=== PATIENT | female | born 1965 | race Caucasian/White ===

== ENCOUNTER 2022-11-13 06:31 | Observation (INO) ==
--- NOTE | 2022-10-24 14:54 | PAT Medication Instructions ---
Medication Instructions Date of Service October 24, 2022 Home Medications acetaminophen 500 mg capsule 1,000 mg PO Q8H PRN Pain atorvastatin 10 mg tablet (Lipitor) 10 mg PO QPM ibuprofen 200 mg tablet 400 mg PO Q6H PRN Pain ASK your surgeon for instructions ibuprofen 200 mg tablet 400 mg PO Q6H PRN Pain Take morning of surgery With a small sip of water, OTHERWISE NOTHING TO EAT OR DRINK AFTER MIDNIGHT: acetaminophen 500 mg capsule 1,000 mg PO Q8H PRN Pain (if needed) Take evening before surgery acetaminophen 500 mg capsule 1,000 mg PO Q8H PRN Pain (if needed) atorvastatin 10 mg tablet (Lipitor) 10 mg PO QPM Other Notes If you have any questions please call us at [phone] or [phone] or [phone] or [phone]
--- NOTE | 2022-10-31 15:23 | Anesthesiology Consultation ---
Date of Service October 31, 2022 Assessment & Plan (1) Encounter for pre-operative examination: - PONV: scop patch requested by pt, previously administered without adverse effects per pt. - Pt requests testing be faxed to her PCP for continuity of care. Chart Review Chart Review: Acceptable Risk for Surgery and Patient seen in Pre Admission Testing Teaching & Discussion Pre-Anesthesia Teaching/Discussion Notes: Instructed NPO after midnight before surgery, except medications with 15 cc of water. Medication instructions provided according to the PAT guidelines. History Surgery Operation Date: 11/13/22 08:10 Proposed Procedures p Right Partial Total Knee Replacement - Dylan Etienne MD Height/Weight Height: 5 ft 3 in Weight: 79.7 kg Allergies Allergy/AdvReac Type Severity Reaction Status Date / Time clarithromycin [From Biaxin] Allergy Intermediate Hives Verified 10/23/22 14:34 fluconazole [From Diflucan] Allergy Intermediate Hives Verified 10/23/22 14:34 sulfamethoxazole Allergy Intermediate BLISTERS Verified 10/23/22 14:34 [From Bactrim] trimethoprim [From Bactrim] Allergy Intermediate BLISTERS Verified 10/23/22 14:34 nitrofurantoin AdvReac Intermediate SICK TO Verified 10/23/22 14:34 [From Macrobid] STOMACH Medications Home Medications Medication Instructions Recorded Confirmed Last Taken acetaminophen 500 mg capsule 1,000 mg PO Q8H PRN Pain 10/23/22 10/23/22 Unknown atorvastatin 10 mg tablet (Lipitor) 10 mg PO QPM 10/23/22 10/23/22 Unknown ibuprofen 200 mg tablet 400 mg PO Q6H PRN Pain 10/23/22 10/23/22 Unknown Past Medical History Medical History Anxiety Bradycardia GERD (gastroesophageal reflux disease) rare, diet controlled, stable per pt High cholesterol History of COVID-19 06/2021 > denies hospitalization > mild symptoms > resolved Hx of cervical cancer Kidney cysts Under surveillance Migraine Patient denies h/o stroke, seizures, heart attack, heart failure, DM, HTN, blood clots or blood transfusions. Exercise / Class Metabolic Activity II 4-5 Yardwork/Stairs/Walk up hill (denies chest discomfort or shortness of breath with 1 FOS) Past Family History Family History Other No family history of adverse response to anesthesia Past Surgical History Surgical History History of carpal tunnel release Right History of colonoscopy History of conization of cervix History of tooth extraction Nausea and vomiting after administration of anesthetic agent had scop patch with last surgery, denies adverse effects S/P right knee arthroscopy S/P trigger finger release Right middle Past Anesthesia History No Hx of Anesthesia Complications and No Family Hx of Anesthesia Complications History of PONV History of PONV (scop patch in past with benefit without adverse effects) and Hx of Motion Sickness Social History Smoking Status: Former smoker tobacco type: cigarettes Do You Dip or Chew Tobacco: No Smoking End Date: 3-4 YEARS AGO Hx Alcohol Use: Yes alcohol intake frequency: holidays/special occasions only substance use type: does not use Review of Systems Snoring, denies witnessed apneas. Patient denies chest pain, shortness of breath, dyspnea on exertion, fever, chills, cough, wheezing, or palpitations. Physical Exam Vital Signs Vitals BP 138/77 P 59 TEMP 98.7 SP02 95% on RA RESP 17 Physical Full cervical extension range of motion without pain TMD 3.5 finger breadths Mallampati Score 3 Dentition: full upper denture; denies chipped or loose teeth, cap/crowns, implants or bridges Lungs: normal respiratory effort. Clear throughout to auscultation, no adventitious breath sounds Cardiac: regular rate and rhythm, no murmurs noted Carotid arteries: negative bruit bilat Lab Results Anesthesia Preop Results Results Anesthesia Widget: WBC 7.24 K/ul (4.8-10.8) 10/31/22 Hgb 14.6 g/dl (12.0-16.0) 10/31/22 Hct 43.1 % (37.0-47.0) 10/31/22 Plt 302 K/uL (130-400) 10/31/22 Na 141 mmol/L (136-145) 10/31/22 K 3.7 mmol/L (3.5-5.1) 10/31/22 Cl 104 mmol/L (98-107) 10/31/22 CO2 30 mmol/L (21-32) 10/31/22 BUN 15 mg/dl (6-23) 10/31/22 Creat 0.78 mg/dl (0.6-1.2) 10/31/22 Glucose Level 115 mg/dl (70-99(Fasting)) H 10/31/22 PT 10.6 Seconds (9.0-12.0) 10/31/22 PTT 27.8 Seconds (21.0-31.0) 10/31/22 INR 1.0 (0.9-1.1) 10/31/22 Urine Color Yellow 10/31/22 Urine Appearance Cloudy (Clear) A 10/31/22 Urine pH 7.0 (4.5-7.5) 10/31/22 Urine Specific [place] 1.019 (1.000-1.030) 10/31/22 Urine Protein Negative (Negative) 10/31/22 Urine Glucose (UA) Negative (Negative) 10/31/22 Urine Ketones Negative (Negative) 10/31/22 Urine Blood 2+ (Negative) H 10/31/22 Urine Nitrite Negative (Negative) 10/31/22 Urine Bilirubin Negative (Negative) 10/31/22 Urine Urobilinogen Negative (Negative) 10/31/22 Urine Leukocyte Esterase Negative (Negative) 10/31/22 Urine WBC (Auto) 1-5 /hpf (0-5) 10/31/22 Urine RBC (Auto) 10-30 /hpf (0-4) H 10/31/22 Urine Hyaline Casts (Auto) 0 /lpf (0-5) 10/31/22 Urine Epithelial Cells (Auto) >30 /lpf (0-5) H 10/31/22 Urine Bacteria (Auto) Negative (Negative) 10/31/22 Blood Type A Positive 10/31/22 Antibody Screen NEGATIVE 10/31/22 Testing Electrocardiogram Date: 10/31/22 Sinus bradycardia, rate 55 bpm Rightward axis Chest X-Ray Date: 10/31/22 Cardiomediastinal and hilar silhouettes are within normal limits. No pneumothorax, pleural effusion, airspace consolidation or pulmonary edema. Spondylitic spurring of the spine. IMPRESSION: No acute process. COVID-19 Risk Screen Screening Information COVID-19 Screen Date: 10/31/22 Exposure 21 Days Family/Household +COVID Last 21 Days: No Exposure 10 Days Any COVID Exposure Last 10 Days: No Symptoms Last 10 Days Experienced COVID Sx Last 10 Days: No + COVID 0-90 Days COVID + in Last 0-90 Days: No
[~2022-11-13 06:31] MED LIST: BUPIVACAINE 0.5 % 5 MG/1 ML PF 10ML VIAL ONE; LR 15ML/HR IV SCH; LR 60ML/HR IV SCH; ROPIVACAINE 0.5% 5 MG/ML 30 ML VIAL ONE; ROPIVACAINE 0.5% HCL/PF 150 MG, BUPIVACAINE 0.75% MPF 20 ML, EPINEPHrine 0.15 MG, Ketor... INFIL SCH; Scopolamine 1 MG TDSY TD SCH; TRANEXAMIC ACID 1,000 MG **IV Pre-op IV SCH; ceFAZolin 2000MG 2,000 MG/15 ML SYR IV SCH
--- NOTE | 2022-11-13 07:09 | History & Physical Bridge Note ---
Date of Service November 13, 2022 History & Physical Bridge Note I have examined the patient, reviewed the History & Physical and in the interval since the performance of the History & Physical I have noted the following changes of clinical significance:consebt obtained/site verified. no changes noted
[2022-11-13] MEDS ORDERED: fentaNYL citrate PF 100 MCG/2 ML VIAL ONE (07:44)
[2022-11-13] MEDS ORDERED: MIDAZOLAM HCL 1 MG/ML 2ML VIAL ONE (07:45)
[2022-11-13] MEDS ORDERED: LIDOCAINE 2% 2 ML VIAL/AMP(20MG/ML) INFIL ONE (07:46)
[2022-11-13] MEDS ORDERED: PROPOFOL IV EMULSION 10 MG/ML 20 ML VIAL IV ONE (07:46)
[2022-11-13] MEDS ORDERED: ORTHO JOINT ANESTHETIC ONE (08:16)
[2022-11-13] MEDS ORDERED: HYDROmorphone INJ 2 MG/ML SYR/VIAL IV PRN (08:41)
[2022-11-13] MEDS ORDERED: PROMETHAZINE HCL 12.5 MG in SODIUM CHLORIDE 0.9% 50 ML IV PRN (08:41)
[2022-11-13] MEDS ORDERED: ePHEDrine sulfate 50 MG/ML AMP IV PRN (08:41)
[2022-11-13] MEDS ORDERED: fentaNYL citrate PF 100 MCG/2 ML VIAL IV PRN (08:41)
[2022-11-13] MEDS ORDERED: ONDANSETRON INJ 2 MG/ML 2 ML VIAL IV PRN ×2 (08:41→11:41)
[2022-11-13] MEDS ORDERED: ATROPINE SULFATE 0.1 MG/ML 10ML SYR IV PRN (08:41)
[2022-11-13] MEDS ORDERED: ONDANSETRON INJ 2 MG/ML 2 ML VIAL ONE (08:53)
[2022-11-13] MEDS ORDERED: PHENYLEPHRINE 100MCG/ML 5ML SYR ONE (08:53)
[2022-11-13] MEDS ORDERED: ePHEDrine sulfate 50 MG/ML SYR ONE (08:55)
--- NOTE | 2022-11-13 10:24 | Post Operative Brief Note ---
Immediate Post Op Note v1 Date of Surgery November 13, 2022 Pre & Post Diagnosis Operation Date: 11/13/22 08:20 Pre-Op Diagnosis: Right knee osteoarthritis. Post-Op Diagnosis: Right knee osteoarthritis. I identified the patient and participated in the time-out.: Yes Procedure Operation Date: 11/13/22 08:20 Actual Procedures p Right Total Knee Arthroplasty (Right) - Dylan Etienne MD Surgeon Dylan Etienne MD Cloth Opener Hand Jos eE/Calderon/Fabian(MS) Estimated Blood Loss 25 Findings Consistent with Post-Op Diagnosis severe medial disease and patella disease
--- NOTE | 2022-11-13 10:33 | Operative Report ---
Post Operative Report Pre & Post Diagnosis Operation Date: 11/13/22 08:20 Pre-Op Diagnosis: Right knee osteoarthritis. Post-Op Diagnosis: Right knee osteoarthritis. I identified the patient and participated in the time-out.: Yes Procedure Operation Date: 11/13/22 08:20 Actual Procedures p Right Total Knee Arthroplasty (Right) - Dylan Etienne MD Surgeon ETHAN Etienne MD Livestock Farmworker Jose E/Calderon/Fabian(MS) Estimated Blood Loss 25 Findings Consistent with Post-Op Diagnosis see operative report Specimens see operative report Drains none Complications none Disposition Accompanied Patient To Recovery: Yes Indications This 57 year old female presented to the office with complaints of persisting right knee pain. She had tried conservative care measures without improvement. X-ray and MRI were obtained. She elected to proceed with surgical intervention after being educated about potential risks and outcomes. Description of Procedure The patient was administered a spinal anesthetic and then taken to the operating room where she was given sedation. She was prepped and draped in the usual sterile fashion. Please see Dr. Etienne's operative report for specifics of the procedure. I was present for the entire case from initial patient positioning through final wound closure. Assistance was provided in tissue retraction, hemostasis, trial implant placement, final implant placement, and final wound closure. The patient was taken to the recovery room in satisfactory condition. I attest to the content of the Intraoperative Record and any orders documented therein. Any exceptions are noted below.
--- NOTE | 2022-11-13 10:43 | Progress Notes ---
SUBJECTIVE: Postop check status post right total knee replacement. The patient is resting comfortab ly in bed. She denies chest pain, shortness of breath, fever, chills, nausea, vomiting or headache. OBJECTIVE: VITAL SIGNS: Stable. She is afebrile. Neurovascular check reveals intact dorsi and plantarflexion of her foot. Quad tone is starting to re turn. Dressing clean, dry and intact. X-ray pending. ASSESSMENT: Status post right knee replacement. Continue with care pathway. Mobilize MIKE. DVT pr ophylaxis per protocol. Job ID: [id number]
--- NOTE | 2022-11-13 10:50 | Operative Report (OR) ---
DATE OF PROCEDURE: 11/13/2022 SURGEON: Dylan Etienne MD. INDUSTRIAL ENGINEERING DIRECTOR: Jose E. SECOND INDUSTRIAL ENGINEERING DIRECTOR: Jeremie Mancera PA-C. THIRD INDUSTRIAL ENGINEERING DIRECTOR: Fabian, medical student. PREOPERATIVE DIAGNOSIS: Osteoarthritis, right knee. POSTOPERATIVE DIAGNOSIS: Osteoarthritis, right knee. OPERATION PERFORMED: Cemented right total knee replacement. SUMMARY OF IMPLANTS: Size 3 posterior cruciate substituting femur, size 3 x 12.5 posterior cruciate substituting insert, size 2.5 mobile bearing tray tibia, size 35 patella. Two bags of [place] G cemen t. All J and J rotating platform knee system. ESTIMATED BLOOD LOSS: 25 mL CRYSTALLOID: Per anesthesia. PATHOLOGY: Pending on bone. DVT prophylaxis per protocol. PERIOPERATIVE SITUATION: Medically cleared female with intractable knee pain. She was originally sc heduled for partial knee replacement. However, over the last several months, developed significant p atellofemoral disease and significant knee swelling. Options were discussed with her. When obtaining consent this morning about going from partial knee replacement to total knee replacement depending o n intraoperative findings, she tells me to use my judgment. At the time of the arthrotomy, it was clear that 50% of the patella was down the bone. As a result, it was deemed appropriate to proceed with total knee replacement based on 2 out of 3 compartments of a significant arthritic disease. DESCRIPTION OF PROCEDURE: The patient was appropriately identified, site verified, consent verified. Antibiotics were confirmed as being given. The right lower extremity was prepped and draped in usu al routine fashion. Tourniquet was inflated to 275 mmHg after exsanguination of the limb with a rubb er Esmarch bandage for a total of 57 minutes. Midline exposure utilized. Incision was only used abo [facility] and then the joint inspected. Once the arthrotomy was made, immediately encountered was s ignificant patellar disease. Due to the medial meniscus extrusion, the bipolar disease of the medial compartment and the patellofemoral disease, it was deemed appropriate to proceed with total knee repl acement. The arthrotomy was then extended. Synovectomy completed. Parapatellar arthrotomy eversion carried out. A subperiosteal dissection of the medial tibia made. The menisci resected. The knee was then flexed. The cruciates were resected. Distal femur then entered, resected 12 mm, proximal t ibia 4 mm, the extension gap was excellent. The femur was sized between a 4 and a 3, was measured 4, cut 3. There was no significant notching noted. The box cut was then made, the size 3 fit well. The tibia was subluxated and 2.5 did not have any ov erhang, so that was elected rather than 3, which had overhang on the anterolateral tibia, which could lead to some IT band friction. As a result, a 2.5 was selected. This was then broached and reamed in the appropriate position and trial reduction with 10 and 12.5 in dicate that 12.5 gave better mid range flexion stability without losing extension, so we kept that. The patella was resected leaving 14 mm and a 35 button placed. It tracked well. The Orthomix was in jected all about the knee including the posterior capsule. The wound was then irrigated after all tr ial elements were removed with Betadine and Pulsavac, and then the permanent cemented into position u sing tibia, femur, and patella in that order. At 12 minutes, the tourniquet deflated. Minor bleedin g points controlled with electrocautery. At 14 minutes, the knee was flexed. No major cement remova l was required after the trial spacer was removed. The wound was irrigated with Betadine and Pulsava c, the permanent liner seated. The knee then reduced and closed at 40 degrees of flexion using #2 Vi cryl, 2-0 Vicryl and stainless steel clips. Appropriate dressing applied. The patient was transferr ed to recovery room in satisfactory condition, having tolerated the procedure well. DVT prophylaxis with Coumadin. Job ID: [id number]
--- NOTE | 2022-11-13 10:52 | Discharge Summary (DS) ---
DATE OF ADMISSION: 11/13/2022 DATE OF POTENTIAL DISCHARGE: 11/14/2022 CHIEF COMPLAINT: Right knee pain. HISTORY OF PRESENT ILLNESS: The patient underwent elective right total knee replacement based on alex gilbert significant arthritic disease behind the patella as well as in the medial compartment. In the two out of three compartments, the patient was more indicated for total knee replacement and partial knee replacement. This was discussed in detail with her preoperatively. Hospital course to date has been uneventful. REVIEW OF SYSTEMS: Reveals no issues. PAST MEDICAL HISTORY: Remarkable for osteoarthritis, obesity, cervical cancer, anxiety, migraine hea dache, and elevated cholesterol. PAST SURGICAL HISTORY: Include, trigger finger release, carpal tunnel release, knee arthroscopy, tub al ligation, and skin treatments. ALLERGIES: INCLUDE BACTRIM, BIAXIN, DIFLUCAN, AND MACROBID, ALL OF WHICH PRODUCES SKIN IRRITATION. PREADMISSION MEDICATIONS: None. ASSESSMENT: Status post right total knee replacement. Continue with care pathway, deep venous throm bosis prophylaxis with Coumadin. Follow up in 2 weeks for staple removal. Full weightbearing right knee and immediate range of motion 0-90. Job ID: [id number]
--- NOTE | 2022-11-13 10:54 | XRay Report ---
RIGHT KNEE 2 VIEWS History: Right total knee arthroplasty. Degenerative arthritis. Postop. FINDINGS: The patient is status post a right total knee arthroplasty. The hardware is intact. No frac ture or dislocation. Skin ana are in place. IMPRESSION: Right total knee arthroplasty. No evidence for hardware complication. ACT 112: Negative or not required by law. Electronically signed by: Biju Gomez M.D. 11/13/2022 10:53 AM
[2022-11-13] MEDS ORDERED: ALUMINUM/MAGNESIUM SUSP 30 ML UDC PO PRN (11:41)
[2022-11-13] MEDS ORDERED: METOCLOPRAMIDE HCL INJ 5 MG/ML 2 ML VIAL IV PRN (11:41)
[2022-11-13] MEDS ORDERED: bisacodyL 10 MG SUPP PR PRN (11:41)
[2022-11-13] MEDS ORDERED: MAGNESIUM HYDROXIDE SUSP 30 ML UDC PO PRN (11:41)
[2022-11-13] MEDS ORDERED: HYDROmorphone INJ 0.5 MG/0.5 ML SYR IV PRN (11:41)
[2022-11-13] MEDS ORDERED: diphenhydrAMINE 50 MG/ML VIAL IV PRN (11:41)
[2022-11-13] MEDS ORDERED: oxyCODONE HCL IR 5 MG TAB (IMMEDIATE RELEASE) PO PRN (11:41)
[2022-11-13] MEDS ORDERED: NALOXONE HCL 0.4 MG/1 ML VIAL/CARP IV PRN (11:41)
[2022-11-13] MEDS ORDERED: SODIUM CHLORIDE 0.9% 1000ML 1,000 ML IV SCH (11:41)
--- NOTE | 2022-11-13 11:42 | Anesthesiology Progress Note ---
Date of Service November 13, 2022 Anesthesia Post Procedure Vital Signs Vital Signs: Temp Pulse Resp BP Pulse Ox O2 Del Method O2 Flow Rate 11/13/22 11:10 60 14 114/75 98 Room Air 11/13/22 10:55 36.6 C 73 14 100/63 100 Room Air 11/13/22 10:45 75 15 113/66 97 Room Air 11/13/22 10:35 80 18 112/64 97 Room Air 11/13/22 10:28 36.4 C L 78 16 110/68 100 Oxymask 6 Pain Intensity Right Knee: Pain Intensity: 0 Transfer of Care Handoff Completed per policy Notes Mental Status: alert / awake / arousable and participated in evaluation Patient Amnestic to Procedure: Yes Nausea / Vomiting: adequately controlled Pain: adequately controlled Airway Patency, RR, SpO2: stable & adequate BP & HR: stable & adequate Hydration State: stable & adequate Neuraxial Anesthesia: was administered and sensory block is resolving Anesthetic Complications: no major complications apparent
[2022-11-13] MEDS: KETOROLAC TROMETHAMINE 15 MG/ML VIAL IV SCH ×2 (12:54→18:38)
[2022-11-13] MEDS: ACETAMINOPHEN 500 MG TAB PO SCH ×2 (13:35→21:57)
[2022-11-13] MEDS ORDERED: ORTHO WARFARIN NOMOGRAM SCH (14:00)
[2022-11-13] MEDS ORDERED: Scopolamine CHECK PATCH PLACEMENT SCH (16:00)
[2022-11-13] MEDS ORDERED: WARFARIN SOD 5 MG TAB PO ONE (16:00)
[2022-11-13] MEDS ORDERED: TRANEXAMIC ACID / 0.7% NACL 1,000 MG/100 ML BAG IV SCH (16:45)
[2022-11-13] MEDS: ceFAZolin 2000MG 2,000 MG/15 ML SYR IV SCH (17:40)
[2022-11-13] MEDS: ASCORBIC ACID 500 MG TAB PO SCH (18:38)
[2022-11-13] MEDS: FERROUS GLUCONATE 324 MG TAB PO SCH (18:38)
[2022-11-13] MEDS: DOCUSATE SODIUM 100 MG CAP PO SCH (19:43)
[2022-11-13] MEDS ORDERED: SENNA 8.6 MG TAB PO SCH (21:00)
[2022-11-13] MEDS ORDERED: ATORVASTATIN 10 MG TAB PO SCH (21:00)
[2022-11-14] MEDS: ceFAZolin 2000MG 2,000 MG/15 ML SYR IV SCH (00:38)
[2022-11-14] MEDS: KETOROLAC TROMETHAMINE 15 MG/ML VIAL IV SCH ×2 (00:39→06:23)
[2022-11-14 05:55] LABS: Hematocrit (blood only) 36.9 % (37.0-47.0); Hemoglobin 12.7 g/dl (12.0-16.0); Mean Corpuscular Hemoglobin 31.6 pg (25.0-34.0); Mean Corpuscular Hgb Conc 34.4 g/dL (32.0-36.0); Mean Corpuscular Volume 91.8 fL (80.0-100.0); Mean Platelet Volume 10.6 fL (9.4-12.4); Platelet Count 277 K/uL (130-400); RDW Standard Deviation 43.8 fL (36.4-46.3); Red Blood Count 4.02 M/uL (4.20-5.40); White Blood Count 11.41 K/ul (4.8-10.8)
[2022-11-14 06:11] LABS: BUN Creatinine Ratio 19.1 (10-20); Calcium 8.7 mg/dl (8.6-10.3); Creatinine Clr Calc Pharmacy 93.1 ml/min; Est GFR (African American) 114.1 ml/min; Est GFR (Non-African American) 98.5 ml/min; Potassium 3.9 mmol/L (3.5-5.1)
[2022-11-14] MEDS: ACETAMINOPHEN 500 MG TAB PO SCH (06:22)
[2022-11-14 06:32] LABS: INR 1.1 (0.9-1.1); Prothrombin Time 11.8 Seconds (9.0-12.0)
--- NOTE | 2022-11-14 06:38 | Orthopedic Progress Note ---
Date of Service November 14, 2022 Assessment & Plan (1) History of knee replacement: Plan Doing well postop day 1 status post right total knee replacement plans for discharge today after dressing change PT OT. Anticoagulation per protocol. Admission and Anticipated Discharge Date Admission Date: November 13, 2022 Subjective Doing well has no major issues. Denies chest pain shortness of breath fever chills nausea vomiting or headache. Vital signs are stable. Physical Exam Physical Exam: Wound dressing clean dry and intact calves nontender. Femoral sciatic nerve is normal. Extension near 0 flexion to near 90 degrees. Results & Data Vital Signs (Past 12 Hours) Vital Signs Temp Pulse Resp BP Pulse Ox O2 Del Method 11/14/22 06:20 36.6 C 58 L 16 121/75 95 Room Air 11/14/22 03:08 36.9 C 58 L 18 110/70 97 Room Air 11/13/22 19:45 Room Air, Nasal Cannula 11/13/22 21:51 36.7 C 52 L 16 121/74 95 Room Air
[2022-11-14] MEDS ORDERED: dexAMETHasone 10 MG in SYRINGE 0 ML IV SCH (08:00)
[2022-11-14] MEDS: FERROUS GLUCONATE 324 MG TAB PO SCH (08:39)
[2022-11-14] MEDS: ASCORBIC ACID 500 MG TAB PO SCH (08:39)
[2022-11-14] MEDS: DOCUSATE SODIUM 100 MG CAP PO SCH (08:39)
[2022-11-14] MEDS ORDERED: MULTIVITAMIN TAB PO SCH (09:00)
--- NOTE | 2022-11-14 09:47 | Orthopedic Progress Note ---
Date of Service November 14, 2022 Assessment & Plan (1) Status post total right knee replacement using cement: Plan: The patient was educated regarding today's findings. Conservative care measures were discussed. Postsurgical dressing was changed by me. SIRENA hose was applied. Continue using the knee immobilizer today and tomorrow when out of bed. She may discontinue its use on Friday morning. Continue using the walker for ambulation and support. Ice and elevate the knee frequently to reduce pain and swelling. Postsurgical dressings should be left in place until Friday. They can be changed at that point if needed for swelling. Start her Coumadin tomor . She will be given a dose today prior to departure. Written discharge instructions were provided. Prescriptions for Percocet 5/325 mg and Coumadin 2 mg were sent to her pharmacy. Call the office with any other concerns. Follow- up in 2 weeks as scheduled for staple removal. Admission and Anticipated Discharge Date Admission Date: November 13, 2022 Subjective This 57-year-old female is seen today in her room. She is sitting in her bedside chair. She states she did well overnight. No chest pain, shortness of breath, nausea, vomiting, or abdominal pain. She describes some thigh pain but overall is doing well. She states she only had Toradol for pain overnight. She feels ready for discharge to home. She states she has physical therapy scheduled for later today. No other complaints. Review of Systems Review of Systems: Unchanged from yesterday. Physical Exam Physical Exam: General: Well-developed, well-nourished, middle-aged female, in no acute distress. Sitting in her bedside chair. Alert and oriented. Conversive. Skin: Warm and dry with good turgor. No rashes. Patient has her postsurgical dressings in place. Upon removal, expected postoperative edema. No ecchymosis or erythema. Josh are in place. Wound edges are well approximated. No drainage. Musculoskeletal: Right leg evaluation reveals intact motor function of the hip, knee, and ankle. She has intact flexion to the knee as well as dorsiflexion and plantarflexion to the ankle. She has full terminal extension. Flexion to nearly 90 degrees. She is able to set her quad and perform a straight leg raise. Neurologic: Gross sensation is intact across the right leg by soft touch. Peripheral pulses are 2+. Results & Data Vital Signs (Past 12 Hours) Vital Signs Temp Pulse Resp BP Pulse Ox O2 Del Method 11/14/22 06:20 36.6 C 58 L 16 121/75 95 Room Air 11/14/22 03:08 36.9 C 58 L 18 110/70 97 Room Air 11/13/22 21:51 36.7 C 52 L 16 121/74 95 Room Air Laboratory Results CBC obtained this morning shows a white count of 11.4. H&H of 12.7 and 36.9. Platelets 277,000. INR is 1.1 today. PRP is unremarkable. BUN of 13 and creatinine 0.68. Normal electrolytes. Glucose 120.
== END 2022-11-14 11:40 | disposition home or self-care (01) ==
LOC: ASU 06:31 → 3E 06:31